=== PATIENT | male | born 1980 | race African-American/Black ===

== ENCOUNTER 2018-12-06 19:30 | Emergency (ER) | payer OTHER ==
[2018-12-06 19:41] VITALS: BP 140/76; PULSE 70; TEMP 97.3; BMI 37.5
[2018-12-06] MEDS ORDERED: SODIUM CHLORIDE 1,000 ML IV STA ×2 (19:43→21:50)
--- NOTE | 2018-12-06 19:43 | PDOC ---
History of Present Illness - General History Source: Patient Exam Limitations: No Limitations - History of Present Illness Initial Comments: 12/06/18 22:16 The patient is a 38 year old male, with a significant past medical history of skin graft to his right hand who presents to the emergency department with vomiting and diarrhea since 12pm today. The patient notes his symptoms are associated with epigastric pain and nausea. The patient reports he had 10 episodes of nbnb diarrhea and 5 episodes of nbnb loose stool within 3-4 hours, earlier today. The patient notes he drank water and ate crackers. The patient notes he ate out Thursday and Thursday night. The patient notes his has similar symptoms for the last 2 days. The patient denies recent travel. The patient denies chest pain, shortness of breath, headache or dizziness. The patient denies fever, chills, and constipation. Allergies: NKDA Past surgical history: skin graft to his right hand Social history: None reported <Alexander Dumont - Last Filed: 12/06/18 22:16> <Tiara Kiran - Last Filed: 12/07/18 02:06> - General Chief Complaint: Vomiting/Diarrhea Stated Complaint: N/V/D Time Seen by Provider: 12/06/18 19:34 Past History <Alexander Dumont - Last Filed: 12/06/18 22:16> - Past Medical History COPD: No - Immunization History Immunization Up to Date: Yes - Suicide/Smoking/Psychosocial Hx Smoking History: Never smoked Have you smoked in the past 12 months: No Number of Cigarettes Smoked Daily: 0 Hx Alcohol Use: No Drug/Substance Use Hx: No Substance Use Type: None <Tiara Kiran - Last Filed: 12/07/18 02:06> - Past Medical History Allergies/Adverse Reactions: Allergies Allergy/AdvReac Type Severity Reaction Status Date / Time No Known Allergies Allergy Verified 12/06/18 19:32 Home Medications: Ambulatory Orders No Home Medications 0 dose .ROUTE UTDICT 11/09/13 Famotidine [Pepcid] 40 mg PO DAILY #10 tablet 12/06/18 Ondansetron [Zofran Odt -] 4 mg SL TID PRN #12 od.tablet 12/06/18 Review of Systems - Review of Systems Able to Perform ROS?: Yes Comments:: 12/06/18 22:17 GENERAL/CONSTITUTIONAL: No fever or chills. No weakness. HEAD, EYES, EARS, NOSE AND THROAT: No change in vision. No ear pain or discharge. No sore throat. CARDIOVASCULAR: No chest pain or shortness of breath. RESPIRATORY: No cough, wheezing, or hemoptysis. GASTROINTESTINAL: (+)nausea, (+)vomiting, (+)diarrhea, No constipation. GENITOURINARY: No dysuria, frequency, or change in urination. MUSCULOSKELETAL:(+) epigastric pain. No joint or muscle swelling or pain. No neck or back pain. SKIN: No rash NEUROLOGIC: No headache, vertigo, loss of consciousness, or change in strength/ sensation. ENDOCRINE: No increased thirst. No abnormal weight change. HEMATOLOGIC/LYMPHATIC: No anemia, easy bleeding, or history of blood clots. ALLERGIC/IMMUNOLOGIC: No hives or skin allergy. All Other Systems: Reviewed and Negative <Alexander Dumont - Last Filed: 12/06/18 22:16> *Physical Exam - Vital Signs Last Vital Signs Temp Pulse Resp BP Pulse Ox 97.3 F L 70 16 140/76 97 12/06/18 19:31 12/06/18 19:31 12/06/18 19:31 12/06/18 19:31 12/06/18 19:31 - Physical Exam Comments: 12/06/18 22:17 GENERAL: Awake, alert, and fully oriented, in no acute distress HEAD: No signs of trauma EYES: PERRLA, EOMI, sclera anicteric, conjunctiva clear ENT: Auricles normal inspection, hearing grossly normal, nares patent, oropharynx clear without exudates. Moist mucosa NECK: Normal ROM, supple, no lymphadenopathy, JVD, or masses LUNGS: Breath sounds equal, clear to auscultation bilaterally. No wheezes, and no crackles HEART: Regular rate and rhythm, normal S1 and S2, no murmurs, rubs or gallops ABDOMEN: (+) mild epigastric tenderness. Soft, normoactive bowel sounds. No guarding, no rebound. No masses EXTREMITIES: Normal range of motion, no edema. No clubbing or cyanosis. No cords, erythema, or tenderness NEUROLOGICAL: Cranial nerves II through XII grossly intact. Normal speech, normal gait SKIN: Warm, Dry, normal turgor, no rashes or lesions noted. <Alexander Dumont - Last Filed: 12/06/18 22:16> - Vital Signs Last Vital Signs Temp Pulse Resp BP Pulse Ox 97.3 F L 70 16 140/76 97 12/06/18 19:31 12/06/18 19:31 12/06/18 19:31 12/06/18 19:31 12/06/18 19:31 <Tiara Kiran - Last Filed: 12/07/18 02:06> Moderate Sedation - Procedure Monitoring Vital Signs: Procedure Monitoring Vital Signs Temperature 97.3 F L 12/06/18 19:31 Pulse Rate 70 12/06/18 19:31 Respiratory Rate 16 12/06/18 19:31 Blood Pressure 140/76 12/06/18 19:31 O2 Sat by Pulse Oximetry (%) 97 12/06/18 19:31 <Alexander Dumont - Last Filed: 12/06/18 22:16> - Procedure Monitoring Vital Signs: Procedure Monitoring Vital Signs Temperature 97.3 F L 12/06/18 19:31 Pulse Rate 70 12/06/18 19:31 Respiratory Rate 16 12/06/18 19:31 Blood Pressure 140/76 12/06/18 19:31 O2 Sat by Pulse Oximetry (%) 97 12/06/18 19:31 <Tiara Kiran - Last Filed: 12/07/18 02:06> ED Treatment Course - LABORATORY CBC & Chemistry Diagram: 12/06/18 19:45 12/06/18 19:45 - ADDITIONAL ORDERS Additional order review: Laboratory Results 12/06/18 19:45 Sodium 135 L Potassium 4.5 Chloride 99 Carbon Dioxide 29 Anion Gap 7 L BUN 16 Creatinine 1.2 Creat Clearance w eGFR > 60 Random Glucose 113 H Calcium 9.3 Total Bilirubin 1.3 H AST 51 H ALT 56 Alkaline Phosphatase 107 Total Protein 7.9 Albumin 4.5 12/06/18 19:45 RBC 5.11 MCV 88.6 MCHC 32.8 RDW 12.6 MPV 9.7 Neutrophils % No Result Required. Lymphocytes % No Result Required. - Medications Given in the ED: ED Medications Discontinued Medications Generic Name Dose Route Start Last Admin Trade Name Freq PRN Reason Stop Dose Admin Acetaminophen 1,000 mg 12/06/18 21:10 12/06/18 21:14 Ofirmev Injection - IVPB 12/06/18 21:11 1,000 mg ONCE ONE Administration Sodium Chloride 1,000 mls @ 1,000 mls/hr 12/06/18 19:43 12/06/18 19:45 Normal Saline - IV 12/06/18 20:42 1,000 mls/hr ASDIR STA Administration Ondansetron HCl 4 mg 12/06/18 19:44 12/06/18 19:50 Zofran Injection IVPUSH 12/06/18 19:45 4 mg ONCE ONE Administration <Alexander Dumont - Last Filed: 12/06/18 22:16> - LABORATORY CBC & Chemistry Diagram: 12/06/18 19:45 12/06/18 19:45 <Tiara Kiran - Last Filed: 12/07/18 02:06> Progress Note - Progress Note Progress Note: Documentation has been prepared under my direction and personally reviewed by me in its entirety. I attest that this documented accurately reflects all work, treatment, procedures and medical decision making performed by me. <Tiara Kiran - Last Filed: 12/07/18 02:06> Medical Decision Making - Medical Decision Making As noted above, this 38-year-old man presents with a one-day history of nausea/ vomiting/diarrhea. Patient's had similar symptoms yesterday and overnight. No recent travel. Patient did eat seafood on [facility] with his 3-4 days ago. He denies hematemesis/coffee ground emesis. There is been no mucus or blood in his stool. There has been no fever/chills. Exam as noted Etiology of the acute Gastrointestinal symptoms may either be food borne ( recent seafood ingestion) or viral. In any case, the patient is mildly dehydrated clinically with mild epigastric tenderness but no other significant findings. CBC/chemistry profile sent. IV normal saline, 1 L, started and patient given Zofran 4 mg IV. After first liter of normal saline and Zofran IV, patient is much more comfortable from nausea standpoint but has some epigastric discomfort. Patient given acetaminophen 1 g IV. Second liter of normal saline IV administered. Patient complaining of persistent epigastric discomfort: 20 mg Pepcid IV given. Epigastric discomfort improved after Pepcid. Patient will be discharged with prescriptions for Zofran ODT 4 mg up to 3 times a day (#12) and Pepcid 40 mg daily for the next 2 weeks sent to his pharmacy. Patient should not work for the next 2 days. He should maintain clear liquid diet and advance diet cautiously. He should return to the ER or see his doctor if he develops recurrent, persistent vomiting/severe pain/high fever/body diarrhea <Tiara Kiran - Last Filed: 12/07/18 02:06> *DC/Admit/Observation/Transfer - Attestations Scribe Attestion: 12/06/18 22:18 Documentation prepared by Alexander Dumont, acting as medical assistant prn for Tiara Kiran MD <Alexander Dumont - Last Filed: 12/06/18 22:16> <Tiara Kiran - Last Filed: 12/07/18 02:06> Diagnosis at time of Disposition: Acute gastroenteritis - Discharge Dispostion Disposition: HOME Condition at time of disposition: Stable - Prescriptions Prescriptions: Famotidine [Pepcid] 40 mg PO DAILY #10 tablet Ondansetron [Zofran Odt -] 4 mg SL TID PRN #12 od.tablet PRN Reason: Nausea - Patient Instructions Printed Discharge Instructions: DI for Viral Gastroenteritis -- Adult Additional Instructions: Clear diet; advance to solids cautiously Zofran ODT 4 mg up to 3 times a day as needed for nausea Pepcid 40 mg daily for the next 10 days No work tomorrow Return or see your doctor if you have persistent vomiting, severe abdominal pain or bloody diarrhea - Post Discharge Activity Forms/Work/School Notes: Back to Work
[2018-12-06] MEDS ORDERED: ONDANSETRON 4 MG/2 ML VIAL IVPUSH ONE (19:44)
[2018-12-06] MEDS ORDERED: ONDANSETRON 4 MG/2 ML VIAL ONE (19:45)
[2018-12-06 20:11] LABS: HEMATOCRIT 45.3 % (35.4-49); HEMOGLOBIN 14.8 GM/dl (11.7-16.9); MCHC 32.8 g/dl (32.0-35.9); MEAN CELL VOLUME 88.6 fl (80-96); MEAN PLT VOLUME 9.7 fl (7.5-11.1); PLATELET COUNT 222 K/MM3 (134-434); RBC 5.11 M/mm3 (4.00-5.60); RDW 12.6 % (11.9-15.9); WHITE BLOOD COUNT 9.3 K/mm3 (4.0-10.8)
[2018-12-06 20:21] LABS: ALBUMIN 4.5 g/dl (3.4-5.0); ALK PHOS 107 U/L (45-117); ANION GAP 7 MMOL/L (8-16); BILIRUBIN,TOTAL 1.3 mg/dl (0.2-1); BLOOD UREA NITROGEN 16 mg/dl (7-18); CALCIUM 9.3 mg/dl (8.5-10); CHLORIDE 99 mmol/L (98-107); CO2 29 mmol/L (21-32); CREATININE 1.2 mg/dl (0.55-1.3); GLUCOSE,RANDOM 113 mg/dl (74-106); SGOT/AST 51 U/L (15-37); SGPT/ALT 56 U/L (13-61); SODIUM 135 mmol/L (136-145); TOT PROT 7.9 g/dl (6.4-8.2)
[2018-12-06 20:25] LABS: POTASSIUM 4.5 mmol/L (3.5-5.1)
[2018-12-06] MEDS ORDERED: ACETAMINOPHEN 1000 MG/100 ML VIAL (NON FORMULARY) IVPB ONE (21:10)
[2018-12-06] MEDS ORDERED: ACETAMINOPHEN INJECTION 100 ML IVPB ONE (21:11)
[2018-12-06 22:00] LABS: PLATELET ESTIMATE ADEQUATE
[2018-12-06] MEDS ORDERED: FAMOTIDINE 20 MG/50 ML IVPB 20 MG/50 ML MG IVPB ONE ×2 (22:10→22:11)
== END 2018-12-06 22:53 | disposition home or self-care (01) ==
LOC: FER 19:30
PROC: 3E033NZ Introduction of Analgesics, Hypnotics, Sedatives into Peripheral Vein, Percutaneous Approach (ICD-10-PCS; principal; 2018-12-06)
PROC: 3E033GC Introduction of Other Therapeutic Substance into Peripheral Vein, Percutaneous Approach (ICD-10-PCS; 2018-12-06)
PROC: 3E0337Z Introduction of Electrolytic and Water Balance Substance into Peripheral Vein, Percutaneous Approach (ICD-10-PCS; 2018-12-06)
DX: K52.9 Noninfective gastroenteritis and colitis, unspecified (principal)
CPT/HCPCS: 36415; 80053; 85025; 99282-25; J0131; J7030

== ENCOUNTER 2022-10-02 18:24 | Emergency (ER) | payer BC, OTHER ==
[2022-10-02 18:54] VITALS: BP 140/85; PULSE 70; RESP 16; TEMP 98.2; BMI 36.3
== END 2022-10-02 18:55 | disposition home or self-care (01) ==
LOC: FER 18:24
DX: J06.9 Acute upper respiratory infection, unspecified (principal)
CPT/HCPCS: 0241U-QW; 99283-25